=== PATIENT | male | born 1955 | race Caucasian/White ===

== ENCOUNTER → 2024-11-22 | Outpatient (CLI) | payer MEDICARE, SELFPAY ==
[2024-11-26 09:08] LABS: G6PD Quant Test 269 (127-427); Red Blood Cell Count Test/G6PD 6.41 x10E6/uL (4.14-5.80)
== END | disposition home or self-care (01) ==
LOC: BIMLAB 11:24
PROVIDERS: Referring Provider Nurse Practitioner Family; Visit Provider Nurse Practitioner Family
DX: D68.59 Other primary thrombophilia (principal); Z13.220 Encounter for screening for lipoid disorders; Z82.49 Family history of ischemic heart disease and other diseases of the circulatory system; Z83.2 Family history of diseases of the blood and blood-forming organs and certain disorders involving the immune mechanism; A69.20 Lyme disease, unspecified; R53.1 Weakness; M25.59 Pain in other specified joint; R61 Generalized hyperhidrosis; R06.00 Dyspnea, unspecified; R51.9 Headache, unspecified
CPT/HCPCS: 36415; 82955

== ENCOUNTER → 2025-04-21 | Outpatient (REF) | payer OTHER, SELFPAY ==
[2025-04-22 13:54] LABS: Hematocrit 52.8 % (40-54); Hemoglobin 17.4 g/dL (13.0-16.5); Immature Granulocytes Count 0.020 X10^3/uL (0.0-0.0); Mean Corp Hgb Conc 33.0 g/dL (32-36); Mean Corpuscular Volume 86.4 fL (80-94); NRBC Flagged by Analyzer 0 % (0-5); POSITIVE COUNT YES; RBC Distribution Width CV 17.1 % (11.6-14.6); RBC Distribution Width SD 51.6 fl (35.1-43.9); Red Blood Count 6.11 M/mm3 (4.6-6.2); White Blood Count 7.4 K/mm3 (4.4-11.0)
[2025-04-22 14:40] LABS: AST(SGOT) 34 U/L (<=37); Alanine Aminotransfer ALT/SGPT 37 U/L (<=46); Albumin, Serum 4.7 g/dL (3.4-4.8); Alkaline Phosphatase 56 U/L (40-129); Anion Gap 16 (5-15); BUN 21 mg/dL (4-19); BUN/Creat Ratio 18.9 RATIO (10-20); Calcium,Total 10.0 mg/dL (7.6-11.0); Carbon Dioxide 23.3 mmol/L (21.0-32.0); Chloride 100 mmol/L (98-108); Cholesterol 190 mg/dL (<=200); Ferritin 221 ng/mL (37-417); Globulin 2.8 g/dL (2.2-4.2); Glucose 90 mg/dL (70-99); Low Density Lipoprotein Calc. 110 mg/dL; Potassium 4.5 mmol/L (3.3-5.1); Triglycerides 206 mg/dL; Very Low Density Lipoprotein 41 mg/dL (5-40); cholesterol:hdl ratio screen 4.95
[2025-04-22 15:13] LABS: CRP 4.03 mg/L (0.0-3.0); Iron 137 ug/dL (65-175); Uric Acid 6.6 mg/dL (3.5-7.2)
[2025-04-22 19:52] LABS: Differential Indicated SCAN CRITERIA MET
[2025-04-22 19:53] LABS: Differential Comment SCANNED
[2025-04-24 13:08] LABS: CRP, High Sensitivity 3.82 mg/L (0.00-3.00)
== END ==
LOC: LABSPEC 15:00
PROVIDERS: PCP Nurse Practitioner Family; Referring Provider Nurse Practitioner Family; Visit Provider Nurse Practitioner Family
DX: A69.20 Lyme disease, unspecified (principal); R53.1 Weakness; M25.59 Pain in other specified joint; R61 Generalized hyperhidrosis; R06.00 Dyspnea, unspecified; R51.9 Headache, unspecified; A44.0 Systemic bartonellosis; R73.9 Hyperglycemia, unspecified; R41.89 Other symptoms and signs involving cognitive functions and awareness
CPT/HCPCS: 80053; 80061; 82728; 83036; 83525; 83540; 84550; 85025; 85652; 86140; 86141